=== PATIENT | male | born 1995 | race Two or more races ===

== ENCOUNTER 2022-10-28 13:20 | Emergency (ER) | payer BC, OTHER ==
[~2022-10-28] VITALS: Ht 172.7 cm; Wt 62.4 kg
[2022-10-28 13:50] VITALS: BP 136/87
[2022-10-28] MEDS ORDERED: IBUP600T27 PO (15:05)
[2022-10-28] MEDS ORDERED: AZIT250T8 PO (15:05)
== END 2022-10-28 15:21 | disposition home or self-care (01) ==
LOC: ER 13:20
DX: J02.9 Acute pharyngitis, unspecified (principal); Z88.6 Allergy status to analgesic agent